=== PATIENT | male | born 1970 | race Hispanic/Latino ===

== ENCOUNTER 2024-03-28 21:15 | Observation (INO) | payer OTHER ==
[~2024-03-28] VITALS: Ht 185.4 cm; Wt 117.9 kg
[2024-03-28] MEDS ORDERED: Morphine 4mg INJECTION 4 MG/ML INJ IV ONE (21:30)
[2024-03-28] MEDS: ONDANSETRON HCL INJ 2MG/ML 2ML 2 MG/ML VIAL IV STA (21:37)
[2024-03-28] MEDS: ASPIRIN 81 MG CHEW TAB PO ONE (21:38)
[2024-03-28] MEDS: NITROGLYCERIN 2% OINT 1 GM PKT TOP ONE (21:38)
[2024-03-28 21:47] LABS: INR 0.95; PROTHROMBIN TIME 13.3 seconds (11.9-14.5)
[2024-03-28 21:48] LABS: PARTIAL THROMBOPLASTIN TIME 31.6 seconds (23.8-35.5)
[2024-03-28 21:59] LABS: ALBUMIN 3.9 g/dL (3.5-5.0); ALBUMIN/GLOBULIN RATIO 1.6 (0.8-2.0); ANION GAP 14.6 mmol/L (8-16); BILIRUBIN,TOTAL 0.5 mg/dL (0.2-1.2); CALCIUM 9.4 mg/dL (8.4-10.2); CREATININE, SERUM 1.03 mg/dL (0.72-1.25); POTASSIUM 3.6 mmol/L (3.5-5.1); TOTAL PROTEIN 6.4 g/dL (6.5-8.1)
[2024-03-28 22:02] LABS: BASOPHILS % 0.7 % (0.0-1.0); EOSINOPHILS # (AUTO) 0.1 (0.0-0.4); EOSINOPHILS % 1.2 % (0.0-6.0); HEMATOCRIT 43.5 % (38.2-49.6); HEMOGLOBIN 14.6 g/dL (14.0-18.0); LYMPHOCYTES # (AUTO) 1.9 (1.0-3.2); LYMPHOCYTES % 31.6 % (18.0-39.1); MEAN CORPUSCULAR HEMOGLOBIN 33.2 pg (28-32); MEAN CORPUSCULAR HGB CONC 33.6 g/dL (31-35); MEAN CORPUSCULAR VOLUME 98.9 fL (81-99); MONOCYTES # (AUTO) 0.5 (0.2-0.8); NEUTROPHILS # (AUTO) 3.5 (2.1-6.9); NEUTROPHILS % 58.3 % (38.7-80.0); PLATELET COUNT 196 x10e3/uL (140-360); WHITE BLOOD COUNT 5.91 x10e3/uL (4.8-10.8)
[2024-03-28 22:05] LABS: TROPONIN I 0.019 ng/mL (0-0.300)
[2024-03-28] MEDS ORDERED: ONDANSETRON HCL INJ 2MG/ML 2ML 2 MG/ML VIAL IV PRN (23:00)
[2024-03-28] MEDS ORDERED: SODIUM CHLORIDE FLUSH 10 ML SYR INJ PRN (23:00)
[2024-03-28 23:30] VITALS: PULSE 61; RESP 16; O2SAT 97
[2024-03-28] MEDS ORDERED: ACETAMINOPHEN 325 MG TAB PO PRN (23:45)
[2024-03-28] MEDS: NITROGLYCERIN 2% OINT 1 GM PKT TOP SCH (23:57)
[2024-03-29] VITALS (13 sets, daily range): BP systolic 147–167; BP diastolic 52–96; PULSE 58–78; RESP 12–19; TEMP 97.7–98.7; O2SAT 97–99
[2024-03-29] MEDS ORDERED: ACETAMINOPHEN 325 MG TAB ONE (03:31)
[2024-03-29] MEDS: ACETAMINOPHEN 325 MG TAB PO ONE (03:36)
[2024-03-29 05:58] LABS: TROPONIN I 0.038 ng/mL (0-0.300)
[2024-03-29] MEDS: CARVEDILOL 12.5 MG TAB PO SCH (10:40)
[2024-03-29] MEDS: ASPIRIN 325 MG TAB EC PO SCH (10:40)
[2024-03-29] MEDS: SODIUM CHLORIDE 0.9% 1000ML 1,000 ML IV SCH ×2 (10:40→12:30)
[2024-03-29] MEDS: HYDROCODONE/APAP 5MG-325MG TAB PO PRN (12:55)
[2024-03-29] MEDS: HEPARIN SOD/SOD CHLORIDE 2,000 ML ONE (14:28)
[2024-03-29] MEDS: HEPARIN SOD (PORCINE) 1000 UNIT/ML 30ML ONE (14:28)
[2024-03-29] MEDS: NITROGLYCERIN/D5W 200 MCG/ML 0 ML ONE (14:29)
[2024-03-29] MEDS: IOPAMIDOL 370 MG/ML 100 ML INFUS..BTL INJ ONE (14:29)
[2024-03-29] MEDS: LIDOCAINE HCL 2% LOCAL 20 ML VIAL ONE (14:29)
[2024-03-29] MEDS: BIVALRIUDIN 250 MG/VIAL VIAL IV ONE (14:30)
[2024-03-29] MEDS: SODIUM CHLORIDE 0.9% 1000ML 1,000 ML ONE (14:30)
[2024-03-29] MEDS: SODIUM CHLORIDE 0.9% 500ML 500 ML ONE (14:30)
[2024-03-29] MEDS: FENTANYL CITRATE/PF 100MCG/2 ML INJ ONE (14:31)
[2024-03-29] MEDS: MIDAZOLAM HCL 2 MG/2 ML VIAL ONE (14:31)
[2024-03-29] MEDS ORDERED: CARVEDILOL25 MG PO (15:01)
[2024-03-29] MEDS ORDERED: MELOXICAM15 MG PO (15:01)
[2024-03-29 15:06] LABS: TROPONIN I 0.028 ng/mL (0-0.300)
[2024-03-29] MEDS ORDERED: HYDROCHLOROTHIAZIDE 25 MG TAB PO SCH (16:15)
[2024-03-29] MEDS: CLONIDINE HCL 0.1 MG TAB PO PRN (16:20)
[2024-03-30] MEDS ORDERED: HYDROCHLOROTHIAZIDE 25 MG TAB PO SCH (09:00)
[2024-04-06 09:27] LABS: ABG HCO3 22 mmol/L (22-26); ABG PCO2 39 mmHg (35-45); ABG PH 7.36 (7.35-7.45); ABG PO2 42 mmHg (80-105); ABG TCO2 23
[2024-04-06 09:28] LABS: ABG HCO3 27 mmol/L (22-26); ABG PCO2 47 mmHg (35-45); ABG PH 7.36 (7.35-7.45); ABG PO2 36 mmHg (80-105); ABG TCO2 28
[2024-04-06 09:28] LABS: ABG HCO3 27 mmol/L (22-26); ABG PCO2 46 mmHg (35-45); ABG PH 7.38 (7.35-7.45); ABG PO2 70 mmHg (80-105); ABG TCO2 28
== END 2024-03-29 18:00 | disposition short-term general hospital (02) ==
LOC: ER 21:19 → ERHOLD 22:50 → MED/SURG 03-29 08:32
PROVIDERS: ADMIT Internal Medicine; ATTEND Internal Medicine
DX: I25.118 Atherosclerotic heart disease of native coronary artery with other forms of angina pectoris (principal); I16.0 Hypertensive urgency; I34.0 Nonrheumatic mitral (valve) insufficiency; I11.0 Hypertensive heart disease with heart failure; I50.89 Other heart failure; E66.9 Obesity, unspecified; Z68.34 Body mass index [BMI] 34.0-34.9, adult; I27.20 Pulmonary hypertension, unspecified; E78.00 Pure hypercholesterolemia, unspecified; Z87.442 Personal history of urinary calculi; I07.1 Rheumatic tricuspid insufficiency; Z88.6 Allergy status to analgesic agent; Z79.1 Long term (current) use of non-steroidal anti-inflammatories (NSAID); Z79.899 Other long term (current) drug therapy
CPT/HCPCS: 36415 ×2; 71045; 76937; 80053; 80061; 82550 ×2; 82805; 83880; 84484 ×2; 85025; 85610; 85730; 93005; 93306; 93460; 94799; 99252; 99284; C1887; C1894; G0378 ×2; J2003; J2250; J2405; J3010; J7030; J7040; Q9967; 99152; 99153; J0583; J1644